=== PATIENT | female | born 1960 | race Caucasian/White ===

== ENCOUNTER → 2017-02-26 | Emergency (ER) | payer MEDICARE ==
[~2017-02-26] MED LIST: ASPIRIN CHILDRE81 MG PO; ASPRIN PO; BACTRIM 400 MG-1 TAB PO; BACTRIM DS 8001 TA1 PO; CALCIUM600 MG PO; CELLCEPT250 MG PO; CIPROFLOXACIN500 MG PO; CLONIDINE0.1 MG PO; COUMADIN5 M2 PO; CRESTOR20 MG PO; Coumadin7.5 MG PO; D3-55000 IU PO; FLAX SEED OIL1000 MG PO; FLORINEF0.1 MG PO; GLIPIZIDE10 MG PO; GLIPIZIDE5 MG PO; HUMULIN R100 U/ML IJ; HYDROCODONE BIT1 T11 PO; IRON325 M1 PO; LABETALOL200 MG PO; LANTUS SOLOS100 U/ML SC; LANTUS100 U/ML SC; MAGNESIUM OXID400 MG PO; METFORMIN500 MG PO; MULTIPLE VITAMI1 CAP PO; NEURONTIN100 MG PO; NORVASC10 MG PO; NOVOLOG; OXYCONTIN10 MG PO; PERCOCET 325 MG1 TA7 PO; PRILOSEC20 M1 PO; PRILOSEC40 MG PO; PROGRAF1 MG PO; PYRIDIUM200 MG PO; SLOW FE45 MG PO; VICODIN HP 6601 TA1 PO; Wellbutrin Sr100 MG PO; ZETIA10 MG PO
== END ==
LOC: ED 13:56
DX: Z53.21 Procedure and treatment not carried out due to patient leaving prior to being seen by health care provider (principal)

== ENCOUNTER 2018-05-29 05:28 | Inpatient (IN) | payer MEDICARE ==
[2018-05-29] VITALS (7 sets, daily range): BP systolic 142–191; BP diastolic 63–88
[~2018-05-29] VITALS: Ht 156.2 cm; Wt 85.0 kg
--- NOTE | ~2018-05-29 | EKG ---
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
--- NOTE | ~2018-05-29 | CON ---
[place], [place] REPORT OF CONSULTATION [id number] UNIT #: [id number] ROOM: 510 DOCTOR: BALDEV RODRIGUES MD BIRTHDATE: [birth year] DOS: 05/30/2018 PULMONARY CONSULTATION AND EVALUATION MANAGEMENT CONSULTATION REQUESTED BY: Hospitalist Services. REASON FOR CONSULTATION: For assessment of current abnormal respiratory symptoms. HISTORY OF PRESENT ILLNESS. This is a 57-year-old white female patient who has been admitted to the hospital on the date of 05/29/2018. The patient came into the hospital in the Emergency Room. The patient stated having symptoms of increased shortness of breath and increased cough. The symptoms ongoing for 2 weeks or more. The symptoms were noted rapidly progressive in the last couple of days and started more than 2 weeks ago. She does have symptoms of chest cough and congestion, using the albuterol sulfate excessively without any relief of symptoms. Tightness in the chest was noted. Denies any symptoms of chest pain. The patient denies symptoms of hemoptysis. The wheezing noted excessively. She has been admitted to the hospital for further medical management of acute exacerbation of chronic obstructive pulmonary disease at this time from yesterday started steroids, bronchodilators and antibiotics. REVIEW OF SYSTEMS: CONSTITUTIONAL: Fatigue and tiredness reported. Denies symptoms of fever or chills. EYES: Denies any burning, redness, or tenderness. EARS, NOSE, AND THROAT: Denies sore throat, hoarseness, otalgia, postnasal drip, epistaxis. CARDIOVASCULAR: Denies angina pain, edema or pain in the lower extremities or palpitations, or syncopal episodes. GENITOURINARY: No dysuria, suprapubic pain, hematuria. MUSCULOSKELETAL: No acute joint pain, redness, or tenderness. SKIN: Denies abnormal lesions or rashes. CENTRAL NERVOUS SYSTEM: No dizziness, headache, diplopia, syncopal episode, tingling sensation of the extremities. Remaining systems were reviewed, they were noted all negative. PAST MEDICAL HISTORY: The patient was known with history of: 1. COPD. 2. Coronary artery disease. 3. Carotid vascular disease. 4. History of renal failure with a kidney transplant. 5. Hypercoagulable status. 6. History of lupus. 7. Type 2 diabetes mellitus. 8. Peripheral arterial disease. PAST SURGICAL HISTORY: 1. Aortic and iliac femoral bypass. [place], [place] REPORT OF CONSULTATION NAME: JESUSITA HAYS UNIT #: [id number] ROOM: [facility] DOCTOR: VELIA POLLARD MDBALDEV BIRTHDATE: [birth year] 2. History of kidney transplant. SOCIAL HISTORY: The patient lives at home, noted tobacco use from a very young age. Continue to smoke actively 1 pack of cigarettes per day. She is , has 2 children, lives in her own home. FAMILY HISTORY: Both parents have been with complication related to the lung cancer. HOME MEDICATIONS: Listed as Norvasc, aspirin, Plavix, Zetia, Pepcid, Feosol, NovoLog, Tresiba, metformin, CellCept, Crestor, Protonix and Prograf. DRUG ALLERGIES: She was noted with no known drug allergies. PHYSICAL EXAMINATION: GENERAL: This is a 57-year-old female who has been noted currently awake and alert without acute distress. Height of 5 feet 1.5 inches, weight of 187 pounds, BMI 34.4. VITAL SIGNS: The patient normal temperature since admission, respiratory rate of 18-20, heart rate of 95-104, blood pressure 177/66-150/68. The pulse oxygen saturation on room air 98% saturation at rest. HEENT: Moderate obesity. Head was atraumatic. Eyes: No icterus. NECK: Supple. CARDIOVASCULAR: S1, S2 is audible. LUNGS: The patient with decreased breath sound noted bilaterally with diffuse expiratory wheezing was present. Basilar crackles were also present. ABDOMEN: Soft. Moderate obesity. Bowel sounds present without any tenderness. EXTREMITIES: The patient without acute edema, clubbing, cyanosis. MUSCULOSKELETAL: Without any acute deformities. SKIN: Visible skin no lesions or rashes. CENTRAL NERVOUS SYSTEM: Cranial nerves 2-12 intact. LABORATORY DATA: CBC yesterday, 05/29/2018, for this consultation reviewed. WBC count 11.9, hemoglobin 10.2, hematocrit 33.5, platelet count 143,000. PT and PTT for the patient were noted as normal. Lactic acid 1.4 yesterday. The troponin 3 sets in the last 24 hours normal. CMP of 05/30/2018, BUN 32, creatinine 1.61, glucose 287. CO2 was 15 for this patient was noted. PT/PTT for the patient repeated this morning again was normal. CMP that was done on 05/29/2018, BUN 26, creatinine 1.29, CO2 of 18. CBC of this morning, WBC count 22.2, hemoglobin 10, hematocrit 31.6, platelet count 442,000. Chest x-ray, 1 view noted with increased interstitial infiltration was suspected in the lower lung with small area of atelectasis. IMPRESSION: 1. The patient will be currently admitted to the hospital noted with acute exacerbation of chronic obstructive pulmonary disease with long-term nicotine dependence. 2. Rule out pneumonia, interstitial infiltration in the lower lungs. 3. Severe leukocytosis, most likely occurred as a result of steroid use. 4. Chronic immunosuppression with kidney transplant history. [place], [place] REPORT OF CONSULTATION NAME: JESUSITA HAYS UNIT #: [id number] ROOM: [facility] DOCTOR: JALEN RODRIGUES MDM BIRTHDATE: [birth year] 5. Acute kidney superimposed chronic injury secondary to intravascular volume depletion and acute tubular necrosis would be considered in the differential diagnosis. 6. The patient with moderate obesity. 7. Suspicion of obstructive sleep apnea disorder due to the patient's current body habitus as well. PLAN OF MANAGEMENT: The patient will be ordered CT scan of chest more clear assessment current abnormal chest x-ray, which were not noted very clear to define the actual interstitial abnormality. Kidney function of the patient will be monitored. Avoid excessive diuretic use. Obtain the Prograf level if not obtained. Also get a consultation of Nephrology Services for the assessment of normal kidney functions. DVT prophylaxis. The bronchodilator every 4 hours. Sputum for Gram stain and culture. Other workup if pneumonia present will be ordered after the CT scan of the assessment if the diagnosis of pneumonia could be confirmed. The patient will be ordered testing for legionella strep antigen and similar other labs. The antibiotic medication to be adjusted if the patient has normal kidney function as well. Other treatment change plan of management at this time as well. Nicotine replacement patches to help overcome the nicotine withdrawal as well. Minimum of sputum for Gram stain and culture will be ordered. Thank you for allowing me to participate in the care of this patient. BALDEV GUNN MD CM:CONSTR:REPORT OF CONSULTATION 1513 05/31/18 0237 interface
--- NOTE | ~2018-05-29 | PR ---
[place], [place] PROGRESS NOTE NAME: [facility]YS [id number] UNIT #: [id number] ROOM: 510 DOCTOR: VELIA POLLARD MD,BALDEV BIRTHDATE: [birth year] DOS: 05/31/2018 PULMONARY PROGRESS NOTE SUBJECTIVE: The patient has been noted comfortable, reduction of respiratory symptoms in the last 24 hours. Denies symptoms of fever or chills. Denies symptoms of coughing. She has been noted without any hematemesis, melena, or hematochezia. Denies symptoms of nausea, vomiting, diarrhea, or abdominal pain. Denies symptoms of hemoptysis. Denies any joint pain. Remaining review of systems was completed and that was noted all negative. PHYSICAL EXAMINATION: VITAL SIGNS: The patient has a normal temperature, respiratory rate 18, heart rate 99, blood pressure 154/76-190/82. Pulse oxygen saturation recorded on room air is 96% saturation. HEENT: Moderate obesity. NECK: Supple. CARDIOVASCULAR: S1, S2 is audible. LUNGS: The patient was noted with a generally decreased breath sounds, mild expiratory wheezing without any crackles. ABDOMEN: Soft, nontender. Bowel sounds present. EXTREMITIES: Noted without any acute edema. MUSCULOSKELETAL: Without any acute deformity. VISIBLE SKIN: No lesions or rashes. CENTRAL NERVOUS SYSTEM: Cranial nerves 2-12 intact. LABORATORY DATA: BMP this morning, BUN 45, creatinine 1.62, glucose 270. Sodium 135. The CO2 was still noted decreased to 14. WBC count for this patient's CBC elevated to 27,000, increased from 21,000; hemoglobin 9.8, hematocrit 31.2, platelet count 484,000. CT scan of the chest without contrast shows 9 cm ground-glass opacity in the right upper lobe, mild mediastinal lymphadenopathy. The patient with subcarinal lymph node enlargement of 1.3 cm as well. The interstitial lung disease was noted perihilar. The patient's lower lung with a small pleural fluids bilaterally, greater on the left than the right side. Thickening of the distal esophagus is also reported by the radiologist possibly related to the distal esophagus. IMPRESSION: 1. Chronic immune suppression with history of kidney transplant. 2. Further mild worsening of the acute kidney as well. 3. The patient with acute exacerbation of chronic obstructive pulmonary disease. 4. Interstitial lung disease, whether related to any medication or other etiology. Lymphadenopathy needs to be considered. A 9 mm nodule, ground-glass opacity in the right upper lung, certainly keep a close eye for the patient to exclude malignancy, further assessment. 5. Possible distal esophageal thickening. The leukocytosis worsened progressively. PLAN OF MANAGEMENT: The patient's steroids at this time will be discontinued [place], [place] PROGRESS NOTE NAME: JESUSITA HAYS UNIT #: [id number] ROOM: 510 DOCTOR: VELIA POLLARD MD,BALDEV BIRTHDATE: [birth year] and started on oral prednisone for the patient starting tomorrow at 20 mg with gradual taper. Continue current replacement patches. No change in antibiotics. Monitor respiratory status of the patient closely for this patient at this time. Repeat CBC and lab testing in the morning. The pleural fluid noted small, but not require any intervention, assessment of the current lymphadenopathy and ground-glass opacity, pulmonary nodule as an outpatient would be considered. Adjusting antibiotic for the patient based on her kidney function as well. The patient has been getting high dose of Levaquin 750 mg every 48 hours. Nephrology services followup as well. BALDEV GUNN MD CM:JASMIN [id number] BALDEV POLLARD MD 05/31/18 1950 interface
--- NOTE | ~2018-05-29 | PR ---
[place], [place] PROGRESS NOTE NAME: JESUSITA HAYS UNIT #: [id number] ROOM: 510 DOCTOR: BALDEV RODRIGUES MD BIRTHDATE: [birth year] DOS: 06/01/2018 PULMONARY PROGRESS NOTE SUBJECTIVE: The patient is noted comfortable at this time, resting on the bed. She has not been noted symptoms of chest pain, fever or chills. Hoping for home discharge. Denies symptoms of hemoptysis. OBJECTIVE: VITAL SIGNS: Normal temperature, respiratory rate 20, heart rate 88, blood pressure 160/80 this morning. Pulse oxygen saturation was recorded as 98% saturation at rest on room air. HEENT: Shows head was atraumatic, eyes nonicterus. NECK: Supple. CARDIOVASCULAR: S1 and S2 audible. LUNGS: Without any wheezes or crackles. ABDOMEN: Soft, nontender. EXTREMITIES: No acute edema. LABORATORY DATA: CBC: WBC count decreased to 18.8, hemoglobin 9.3. BMP: BUN 49, creatinine 1.49. IMPRESSION: 1. The patient with resolving acute interstitial pneumonia. 2. Improving leukocytosis as well because of the corticosteroids effect. The patient was started on prednisone tapering dose yesterday. 3. The patient with resolving acute pneumonia. 4. Improving acute kidney injury. 5. History of chronic kidney transplant. 6. Chronic immunosuppression. 7. Right upper lung ground-glass opacity, 9 mm, requires further assessment. PLAN OF MANAGEMENT: The patient could be discharged on tapering prednisone, antibiotics, and other medical management as previously. She was advised about followup office visit post-discharge as well. The nodule in the right upper lung requires a followup CT scan in 3 months to document resolution. If persistent, additional workup is to be done accordingly. [place], [place] PROGRESS NOTE NAME: JESUSITA HAYS UNIT #: [id number] ROOM: 510 DOCTOR: BALDEV RODRIGUES MD BIRTHDATE: [birth year] BALDEV GUNN MD CM:PNTRANS [id number] BALDEV POLLARD MD 06/01/18 1311 interface
--- NOTE | ~2018-05-29 | EKG ---
[place], [place] ELECTROCARDIOGRAM REPORT NAME: JESUSITA HAYS UNIT #: [id number] ROOM: 510 DOCTOR: CHU DRAFT REPORT BIRTHDATE: [birth year] [facility] Test Date: 2018-05-29 Test Time: 12:21:34 Pat Name: JESUSITA HAYS Department: Room: 510 Gender: F Development Educator: Queenie Smith : 1960 Requested By: JUAN MANUEL DOMINGUEZ Order Number: [id number] Reading MD: Dexter Santos MD Measurements Intervals [place] Rate: 94 P: CO: QRS: 40 QRSD: 85 T: -3 QT: 374 QTc: 468 Interpretive Statements Normal sinus rhythm Probable left atrial enlargement Borderline T abnormalities, inferior leads Minimal ST elevation, anterior leads Compared to earlier ECG this date Inferior ST-T changes are now present Electronically Signed On 05-29-2018 18:24:00 PST by Dexter Santos MD CM:EKGRPT:ELECTROCARDIOGRAM REPORT 1221 1824 JUAN MANUEL ZAIDI DRAFT REPORT JUAN MANUEL DOMINGUEZ DO
--- NOTE | ~2018-05-29 | EKG ---
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
[~2018-05-29 05:28] MED LIST changes: -METFORMIN500 MG PO; +Metformin Hydr500 MG PO
[2018-05-29] MEDS ORDERED: NORVASC10 MG PO (05:40)
[2018-05-29] MEDS ORDERED: PEPCID20 MG PO (05:41)
[2018-05-29] MEDS ORDERED: PROTONIX40 MG PO (05:41)
[2018-05-29] MEDS ORDERED: PLAVIX75 M1 PO (05:41)
[2018-05-29] MEDS ORDERED: TRESIBA FL100 UNIT/1 SQ ×2 (05:42→05:43)
[2018-05-29] MEDS ORDERED: NOVOLOG100 UNIT/1 SQ (05:43)
[2018-05-29 06:07] LABS: BASO # 0.1 10*3/uL (0.0-0.1); EOS # 0.5 10*3/uL (0.0-0.4); EOS % 3.9 % (1.0-4.0); HEMATOCRIT 33.5 % (37.0-47.0); HEMOGLOBIN 10.3 g/dl (12.0-16.0); LYMPH # 1.7 10*3/uL (1.3-4.4); LYMPH % 14.4 % (27.0-41.0); MEAN CELL VOLUME 89.8 fl (81.0-99.0); MEAN CORPUSCULAR HGB 27.6 pg (27.0-31.0); MEAN CORPUSCULAR HGB CONC 30.7 g/dl (33.0-37.0); MEAN PLATELET VOLUME 8.8 fl (9.6-12.3); MONO # 0.8 10*3/uL (0.1-1.0); MONO % 6.5 % (3.0-9.0); NEUT # 8.7 10*3/uL (2.3-7.9); NEUT % 73.6 % (47.0-73.0); PLATELET COUNT AUTOMATED 443 10*3/uL (130-400); RED BLOOD COUNT 3.73 10*6/uL (4.10-5.10); RED CELL DISTRI WIDTH 14.1 % (0-14.5); WHITE BLOOD COUNT 11.9 10*3/uL (4.8-10.8)
[2018-05-29 06:19] LABS: ACT PARTIAL THROMBO TIME 29.3 SECONDS (20.8-31.5); INTERNATIONAL NORM RATIO 0.9 (2.0-3.5)
[2018-05-29 06:20] LABS: ALKALINE PHOSPHATASE 79 U/L (45-117); BUN 26 mg/dl (7-24); CHLORIDE 115 mmol/L (98-107); CREATININE 1.29 mg/dL (0.55-1.02); POTASSIUM 4.8 mmol/L (3.5-5.1); SGOT/AST 11 IU/L (3-35); SGPT/ALT 11 U/L (12-78); SODIUM 141 mmol/L (136-145); TOTAL PROTEIN 7.1 gm/dL (6.4-8.2)
[2018-05-29 06:22] LABS: TROPONIN I < 0.015 ng/ml (<0.045)
[2018-05-29] MEDS ORDERED: FEROSUL325 MG PO (07:35)
[2018-05-30] VITALS: BP 149/67
[2018-05-30 07:04] LABS: HEMATOCRIT 31.6 % (37.0-47.0); MEAN CELL VOLUME 88.8 fl (81.0-99.0); MEAN CORPUSCULAR HGB 28.1 pg (27.0-31.0); MEAN CORPUSCULAR HGB CONC 31.6 g/dl (33.0-37.0); MEAN PLATELET VOLUME 8.9 fl (9.6-12.3); PLATELET COUNT AUTOMATED 442 10*3/uL (130-400); RED BLOOD COUNT 3.56 10*6/uL (4.10-5.10); RED CELL DISTRI WIDTH 13.9 % (0-14.5); WHITE BLOOD COUNT 22.2 10*3/uL (4.8-10.8)
[2018-05-30 07:12] LABS: ACT PARTIAL THROMBO TIME 27.9 SECONDS (20.8-31.5)
[2018-05-30 07:20] LABS: ALBUMIN 2.1 gm/dl (3.1-4.5); ALKALINE PHOSPHATASE 77 U/L (45-117); BUN 32 mg/dl (7-24); CHLORIDE 114 mmol/L (98-107); CHOLESTEROL 157 mg/dL (<200); CREATININE 1.61 mg/dL (0.55-1.02); SGOT/AST 9 IU/L (3-35); SGPT/ALT 11 U/L (12-78); SODIUM 138 mmol/L (136-145); TOTAL PROTEIN 6.9 gm/dL (6.4-8.2); TRIGLYCERIDES 136 mg/dl (<150); VLDL CHOLESTEROL 27 mg/dL (6-40)
[2018-05-30 07:21] LABS: FREE T4 0.88 ng/dl (0.76-1.46); HDL CHOLESTEROL 42 mg/dl (40-60); LDL CHOLESTEROL 88 mg/dL (9-159)
[2018-05-30 07:26] LABS: THYROID STIM HORMONE (HS) 0.999 uIU/ml (0.358-4.75)
[2018-05-30 08:00] VITALS: BP 118/68
[2018-05-30 08:01] LABS: PLATELET SUFFICIENCY HIGH (NORMAL); POLYCHROMASIA SLIGHT; TOTAL CELLS COUNTED 100 #CELLS
[2018-05-30 08:29] LABS: VITAMIN D, 25-HYDROXY 18.7 ng/mL (30-100)
[2018-05-30 12:00] VITALS: BP 150/68
[2018-05-30 16:00] VITALS: BP 155/60
[2018-05-30 20:00] VITALS: BP 158/68
[2018-05-31] VITALS (8 sets, daily range): BP systolic 147–190; BP diastolic 59–90
[2018-05-31 06:30] LABS: HEMATOCRIT 31.2 % (37.0-47.0); HEMOGLOBIN 9.8 g/dl (12.0-16.0); MEAN CELL VOLUME 90.2 fl (81.0-99.0); MEAN CORPUSCULAR HGB 28.3 pg (27.0-31.0); MEAN CORPUSCULAR HGB CONC 31.4 g/dl (33.0-37.0); MEAN PLATELET VOLUME 9.1 fl (9.6-12.3); PLATELET COUNT AUTOMATED 484 10*3/uL (130-400); RED BLOOD COUNT 3.46 10*6/uL (4.10-5.10); RED CELL DISTRI WIDTH 14.5 % (0-14.5); WHITE BLOOD COUNT 27.1 10*3/uL (4.8-10.8)
[2018-05-31 06:53] LABS: POLYCHROMASIA SLIGHT; TOTAL CELLS COUNTED 100 #CELLS
[2018-05-31 06:54] LABS: PLATELET SUFFICIENCY HIGH (NORMAL); TOXIC GRANULATION SLIGHT
[2018-05-31 06:58] LABS: CREATININE 1.62 mg/dL (0.55-1.02); POTASSIUM 5.1 mmol/L (3.5-5.1)
[2018-06-01] VITALS: BP 130/51
[2018-06-01 06:57] LABS: BASO % 0.1 % (0.0-1.0); EOS % 0.1 % (1.0-4.0); HEMOGLOBIN 9.3 g/dl (12.0-16.0); LYMPH # 1.9 10*3/uL (1.3-4.4); LYMPH % 10.2 % (27.0-41.0); MEAN CELL VOLUME 88.8 fl (81.0-99.0); MEAN CORPUSCULAR HGB 27.5 pg (27.0-31.0); MONO # 1.4 10*3/uL (0.1-1.0); MONO % 7.4 % (3.0-9.0); NEUT # 15.3 10*3/uL (2.3-7.9); NEUT % 81.1 % (47.0-73.0); PLATELET COUNT AUTOMATED 469 10*3/uL (130-400); RED BLOOD COUNT 3.38 10*6/uL (4.10-5.10); RED CELL DISTRI WIDTH 14.4 % (0-14.5); WHITE BLOOD COUNT 18.8 10*3/uL (4.8-10.8)
[2018-06-01 08:01] VITALS: BP 160/80
[2018-06-01 08:16] LABS: ALBUMIN 2.1 gm/dl (3.1-4.5); ALKALINE PHOSPHATASE 66 U/L (45-117); BUN 49 mg/dl (7-24); CHLORIDE 115 mmol/L (98-107); CREATININE 1.56 mg/dL (0.55-1.02); POTASSIUM 4.5 mmol/L (3.5-5.1); SGOT/AST 10 IU/L (3-35); SGPT/ALT 18 U/L (12-78); SODIUM 141 mmol/L (136-145); TOTAL PROTEIN 6.2 gm/dL (6.4-8.2)
[2018-06-01] MEDS ORDERED: PREDNISONE10 MG PO (10:16)
[2018-06-01] MEDS ORDERED: TOPROL XL50 M1 PO (10:16)
[2018-06-01] MEDS ORDERED: B12,B-12,B 12500 MC1 PO (10:16)
[2018-06-01] MEDS ORDERED: VITAMIN D32000 UNI1 PO (10:16)
[2018-06-01] MEDS ORDERED: LEVAQUIN750 M1 PO (10:16)
== END 2018-06-01 11:20 | disposition home or self-care (01) | DRG 871 ==
LOC: ED 05:28 → EDHOLD 06:37 → 5E 06:37
PROVIDERS: Internal Medicine; Internal Medicine Critical Care Medicine; Student in an Organized Health Care Education/Training Program
DX: A41.9 Sepsis, unspecified organism (principal); E43 Unspecified severe protein-calorie malnutrition; J18.1 Lobar pneumonia, unspecified organism; D84.9 Immunodeficiency, unspecified; D68.59 Other primary thrombophilia; N17.9 Acute kidney failure, unspecified; J98.11 Atelectasis; Z94.0 Kidney transplant status; J44.1 Chronic obstructive pulmonary disease with (acute) exacerbation; J44.0 Chronic obstructive pulmonary disease with (acute) lower respiratory infection; N18.3 Chronic kidney disease, stage 3 (moderate); M32.9 Systemic lupus erythematosus, unspecified; E66.09 Other obesity due to excess calories; E83.41 Hypermagnesemia; E87.8 Other disorders of electrolyte and fluid balance, not elsewhere classified; D47.3 Essential (hemorrhagic) thrombocythemia; I65.21 Occlusion and stenosis of right carotid artery; I25.10 Atherosclerotic heart disease of native coronary artery without angina pectoris; I27.21 Secondary pulmonary arterial hypertension; R59.0 Localized enlarged lymph nodes; F17.210 Nicotine dependence, cigarettes, uncomplicated; I12.9 Hypertensive chronic kidney disease with stage 1 through stage 4 chronic kidney disease, or unspecified chronic kidney disease; E11.51 Type 2 diabetes mellitus with diabetic peripheral angiopathy without gangrene; E11.22 Type 2 diabetes mellitus with diabetic chronic kidney disease; R91.1 Solitary pulmonary nodule; T38.0X5A Adverse effect of glucocorticoids and synthetic analogues, initial encounter; Z71.6 Tobacco abuse counseling; Z68.34 Body mass index [BMI] 34.0-34.9, adult; Z87.440 Personal history of urinary (tract) infections; Z80.1 Family history of malignant neoplasm of trachea, bronchus and lung; Z79.899 Other long term (current) drug therapy; Z79.82 Long term (current) use of aspirin; Z79.02 Long term (current) use of antithrombotics/antiplatelets; Y92.89 Other specified places as the place of occurrence of the external cause; Z79.4 Long term (current) use of insulin

== ENCOUNTER → 2020-04-07 | Outpatient (CLI) | payer MEDICARE ==
[~2020-04-07] MED LIST changes: +B12,B-12,B 12500 MC1 PO; +COREG25 MG PO; +FEROSUL325 MG PO; +LASIX80 MG PO; +LEVAQUIN750 M1 PO; +LEXAPRO10 MG PO; +MAGOX 400400 MG PO; +NEPHRO-VITE TA0.8 MG PO; +NOVOLOG100 UNIT/1 SQ; +PEPCID20 MG PO; +PLAVIX75 M1 PO; +PREDNISONE10 MG PO; +PROTONIX40 MG PO; +RANOLAZINE ER500 MG PO; +TOPROL XL50 M1 PO; +TRESIBA FL100 UNIT/1 SQ; +VITAMIN D32000 UNI1 PO
== END | disposition home or self-care (01) ==
LOC: CARD 10:15
PROVIDERS: ATTEND Internal Medicine Cardiovascular Disease
DX: I08.3 Combined rheumatic disorders of mitral, aortic and tricuspid valves (principal); R94.31 Abnormal electrocardiogram [ECG] [EKG]

== ENCOUNTER 2020-06-12 14:21 | Inpatient (IN) | payer MEDICARE, MEDICAID ==
[2020-06-12] VITALS (13 sets, daily range): BP systolic 116–172; BP diastolic 28–102
[~2020-06-12] VITALS: Ht 154.9 cm; Wt 56.3 kg
[~2020-06-12 14:21] MED LIST changes: -COREG25 MG PO; -LEXAPRO10 MG PO; -NEPHRO-VITE TA0.8 MG PO; -RANOLAZINE ER500 MG PO
--- NOTE | 2020-06-12 14:48 | NUR ---
PATIENT C/O SUBSTERNAL CHEST PAIN. RATING PAIN A 10/10. MEDICATED PER ORDERS. IVP BY RN. WILL CONTINUE TO MONITOR PT. CALL LIGHT IN REACH.
[2020-06-12 14:54] LABS: MEAN CELL VOLUME 95.8 fl (81.0-99.0); MEAN CORPUSCULAR HGB 28.9 pg (27.0-31.0); MEAN CORPUSCULAR HGB CONC 30.2 g/dl (33.0-37.0); MEAN PLATELET VOLUME 8.9 fl (9.6-12.3); PLATELET COUNT AUTOMATED 384 10*3/uL (130-400); RED CELL DISTRI WIDTH 15.1 % (0-14.5); WHITE BLOOD COUNT 10.5 10*3/uL (4.8-10.8)
[2020-06-12 15:00] LABS: HEMATOCRIT 18.2 % (37.0-47.0)
[2020-06-12 15:06] LABS: ACT PARTIAL THROMBO TIME 25.2 SECONDS (20.0-32.1)
--- NOTE | 2020-06-12 15:10 | NUR ---
PATIENT STATES THAT HE PAIN HAS DECREASED TO A 5/10. PATIENT CONTINUES TO REST. CALL LIGHT IN REACH. WILL CONTINUE TO MONITOR PT.
[2020-06-12 15:12] LABS: ALBUMIN 2.6 gm/dl (3.1-4.5); ALKALINE PHOSPHATASE 78 U/L (45-117); BUN 10 mg/dl (7-24); CHLORIDE 99 mmol/L (98-107); CREATININE 0.96 mg/dL (0.55-1.02); POTASSIUM 3.6 mmol/L (3.5-5.1); SGOT/AST 15 IU/L (3-35); SGPT/ALT 9 U/L (12-78); SODIUM 138 mmol/L (136-145); TOTAL PROTEIN 7.3 gm/dL (6.4-8.2)
[2020-06-12 15:19] LABS: BASOPHILS 1 % (0-1); PLATELET SUFFICIENCY NORMAL (NORMAL); STOMATOCYTE FEW; TOTAL CELLS COUNTED 100 #CELLS
[2020-06-12 15:21] LABS: TROPONIN I 0.066 ng/ml (<0.045)
--- NOTE | 2020-06-12 15:26 | NUR ---
TRPOPNIN 0.066
[2020-06-12] MEDS ORDERED: NEPHRO-VITE TA0.8 MG PO (16:09)
[2020-06-12] MEDS ORDERED: LEXAPRO10 MG PO (16:09)
--- NOTE | 2020-06-12 16:17 | NUR ---
PT RECIEVEING PRBC PT ASYMPTOMATIC RECIEVING BLOOD AT 120 / HR
--- NOTE | 2020-06-12 16:40 | NUR ---
A 59, admitted to ICCU, under the services of GUILLERMO Moody DO with a diagnosis of ANEMIA & NSTEMI. Chief complaint is CHEST PAIN. Patient arrived via stretcher from ER. Monitor applied. Initial assessment completed. Vital signs taken and recorded. GUILLERMO MOODY DO notified of admission to the unit. Orders received. See assessment for past medical history, medications and allergies. Patient and/or family oriented to unit. [facility] visitation policy reviewed. BLOOD INFUSING UPON ARRIVAL TO ICU AVE CRUZ
[2020-06-12] MEDS ORDERED: COREG25 MG PO (16:51)
[2020-06-12] MEDS ORDERED: RANOLAZINE ER500 MG PO (16:52)
[2020-06-12] MEDS ORDERED: PROTONIX40 MG PO (16:53)
--- NOTE | 2020-06-12 17:01 | NUR ---
DR. OLIVAREZ, DR. MARKS'S ANSWERING SERVICE NOTIFIED OF CONSULT. DR. FRAZIER ALSO MADE AWARE OF CONSULT
--- NOTE | 2020-06-12 17:21 | NUR ---
DR FRAZIER NOTIFIED OF CONSULT
--- NOTE | 2020-06-12 17:30 | NUR ---
DR CORRALES AND KENDELL SERVICE NOTIFIED OF CONSULT
--- NOTE | 2020-06-12 18:17 | NUR ---
MEDICATED WITH MORPHINE 2MG IV FOR COMPLAINTS OF PAIN UNDER RIGHT BREAST. RATES PAIN A 8 ON A PAIN SCALE OF 1-10
--- NOTE | 2020-06-12 18:23 | NUR ---
CBC CANCELLED FOR 8PM, AND WILL BE RETIMED FOR WHEN BLOOD IS DONE
--- NOTE | 2020-06-12 18:30 | NUR ---
FIRST RBC COMPLETED
--- NOTE | 2020-06-12 20:00 | NUR ---
PT WITH PERITONEAL CATH W/ DRY AND INTACT DRESSING, HAS OLD NON FUNCTIONAL AV FISTULA TO L UPPER ARM, NO BRUIT OR THRILL
[2020-06-12 20:34] LABS: HEMATOCRIT 21.2 % (37.0-47.0)
[2020-06-13] VITALS (10 sets, daily range): BP systolic 103–130; BP diastolic 39–54
[2020-06-13 02:01] LABS: BASO # 0.1 10*3/uL (0.0-0.1); BASO % 1.2 % (0.0-1.0); EOS # 0.4 10*3/uL (0.0-0.4); EOS % 5.9 % (1.0-4.0); HEMATOCRIT 24.2 % (37.0-47.0); LYMPH # 0.8 10*3/uL (1.3-4.4); LYMPH % 12.9 % (27.0-41.0); MEAN CELL VOLUME 93.4 fl (81.0-99.0); MEAN CORPUSCULAR HGB 30.1 pg (27.0-31.0); MEAN CORPUSCULAR HGB CONC 32.2 g/dl (33.0-37.0); MEAN PLATELET VOLUME 8.7 fl (9.6-12.3); MONO # 0.7 10*3/uL (0.1-1.0); MONO % 11.5 % (3.0-9.0); NEUT # 4.4 10*3/uL (2.3-7.9); NEUT % 68.2 % (47.0-73.0); RED BLOOD COUNT 2.59 10*6/uL (4.10-5.10); RED CELL DISTRI WIDTH 15.1 % (0-14.5); WHITE BLOOD COUNT 6.4 10*3/uL (4.8-10.8)
[2020-06-13 02:02] LABS: PLATELET COUNT AUTOMATED 246 10*3/uL (130-400)
--- NOTE | 2020-06-13 03:31 | NUR ---
ATTEMP TO WEAN EPI DOWN TP .05MICS/KG/MIN, PT/S BP DROPS TP 80'S, BACK UP TO .075, PT WITH SINUS TACHY AND BP IN 200'S SBP, 100 DPP, DIPROVAN DRIP INCREASED TO 25 MICS/KG/MIN
--- NOTE | 2020-06-13 06:18 | NUR ---
LE: LAST PM AT 0920 PT HAD 1 VICODIN FOR C/O R PAIN UNDER BREAST, MEDICATION EFFECTIVE, PT SLEPT THROUGH THE NIGHT
--- NOTE | 2020-06-13 10:21 | NUR ---
[facility],
[2020-06-13 10:49] LABS: BASO # 0.1 10*3/uL (0.0-0.1); EOS # 0.3 10*3/uL (0.0-0.4); EOS % 4.8 % (1.0-4.0); HEMATOCRIT 28.2 % (37.0-47.0); LYMPH # 0.6 10*3/uL (1.3-4.4); LYMPH % 8.5 % (27.0-41.0); MEAN CELL VOLUME 92.5 fl (81.0-99.0); MEAN CORPUSCULAR HGB 29.8 pg (27.0-31.0); MEAN CORPUSCULAR HGB CONC 32.3 g/dl (33.0-37.0); MEAN PLATELET VOLUME 8.8 fl (9.6-12.3); MONO # 0.6 10*3/uL (0.1-1.0); MONO % 8.7 % (3.0-9.0); NEUT # 5.1 10*3/uL (2.3-7.9); NEUT % 76.7 % (47.0-73.0); PLATELET COUNT AUTOMATED 264 10*3/uL (130-400); RED BLOOD COUNT 3.05 10*6/uL (4.10-5.10); RED CELL DISTRI WIDTH 16.2 % (0-14.5); WHITE BLOOD COUNT 6.7 10*3/uL (4.8-10.8)
--- NOTE | 2020-06-13 11:06 | NUR ---
Pt. was transferred to via w/c with belongings . Report pending RN assignment. Bed glu done prior to departure.
[2020-06-13 11:10] LABS: ACT PARTIAL THROMBO TIME 26.3 SECONDS (20.0-32.1)
[2020-06-13 11:27] LABS: ALBUMIN 2.3 gm/dl (3.1-4.5); CREATININE 2.24 mg/dL (0.55-1.02); POTASSIUM 3.7 mmol/L (3.5-5.1); TOTAL PROTEIN 6.4 gm/dL (6.4-8.2)
[2020-06-13 11:29] LABS: FREE T4 1.45 ng/dl (0.76-1.46)
--- NOTE | 2020-06-13 11:30 | NUR ---
PHYSICAL THERAPY PT EVAL ATTEMPTED TODAY BUT PATIENT WAS SLEEPING ON FIRST ATTEMPT AND REQUESTING TO RETURN TOMORROW ON SECOND ATTEMPT. THANK YOU FOR REFERRAL JULIETH PACHECO PT
[2020-06-13 11:34] LABS: THYROID STIM HORMONE (HS) 1.04 uIU/ml (0.358-4.75)
--- NOTE | 2020-06-13 13:07 | NUR ---
PT REQUESTED AND GIVEN NORCO FOR C/O ABD PAIN . PT RATES PAIN 5/10 WILL MONITOR
[2020-06-13 13:16] LABS: VITAMIN D, 25-HYDROXY 31.3 ng/mL (30-100)
--- NOTE | 2020-06-13 13:50 | NUR ---
PT STATES THAT [facility] HELPED WILL MONITOR
--- NOTE | 2020-06-13 21:06 | NUR ---
HERE TO SEE PT.
[2020-06-14] VITALS: BP 114/52
[2020-06-14 06:30] LABS: BASO # 0.1 10*3/uL (0.0-0.1); BASO % 1.1 % (0.0-1.0); EOS # 0.3 10*3/uL (0.0-0.4); HEMATOCRIT 28.4 % (37.0-47.0); LYMPH # 0.9 10*3/uL (1.3-4.4); LYMPH % 15.1 % (27.0-41.0); MEAN CELL VOLUME 93.4 fl (81.0-99.0); MEAN CORPUSCULAR HGB 29.9 pg (27.0-31.0); MEAN PLATELET VOLUME 8.9 fl (9.6-12.3); MONO # 0.5 10*3/uL (0.1-1.0); MONO % 8.4 % (3.0-9.0); NEUT # 4.3 10*3/uL (2.3-7.9); NEUT % 69.9 % (47.0-73.0); PLATELET COUNT AUTOMATED 253 10*3/uL (130-400); RED BLOOD COUNT 3.04 10*6/uL (4.10-5.10); RED CELL DISTRI WIDTH 15.9 % (0-14.5); WHITE BLOOD COUNT 6.2 10*3/uL (4.8-10.8)
[2020-06-14 06:49] LABS: ALBUMIN 2.3 gm/dl (3.1-4.5); POTASSIUM 3.9 mmol/L (3.5-5.1)
[2020-06-14 06:52] LABS: CREATININE 3.24 mg/dL (0.55-1.02); TOTAL PROTEIN 6.4 gm/dL (6.4-8.2)
[2020-06-14 08:00] VITALS: BP 116/48
--- NOTE | 2020-06-14 08:28 | NUR ---
OT NOTE Occupational therapy order and nursing screen received. Will follow up with the patient for completion of an OT evaluation. Thank you. Mary Partida, OTR/L
--- NOTE | 2020-06-14 08:36 | NUR ---
PHYSICAL THERAPY Nursing screen recceived and chart reviewed. PT evaluation received. Will follow to complete PT evaluation. Thank you. Tahmina Ramos,PT,DPT
--- NOTE | 2020-06-14 09:00 | NUR ---
Senior Construction Estimator in to talk to patient. Patient states lives at home with . There are no steps in the home. Physician: mulu chaney Pharmacy: Home health services: none Patient's level of ADLs: INDEPENDENT Patient has working utilities: all working DME: none Follow-up physician's appointment after d/c: will be made by hospitalist nurse director upon discharge Does patient want to access PORTAL?: no Discharge plan discussed with patient, she lives at home with , states she gets around fine and will be returning home when discharged, discussed VNA and she declines any home needs, case management will follow. TEODORO MCCOY
[2020-06-14 12:00] VITALS: BP 123/47
[2020-06-14 14:00] VITALS: BP 158/52
--- NOTE | 2020-06-14 14:06 | NUR ---
INTO PATIENTS ROOM TO DISCUSS DISCHARGE. PATIENT DIAPHORETIC AND NAUSEA. BLOOD SUGAR CHECKED. BLOOD SUGAR 57. DEXTROSE GIVEN PER ORDERS. PATIENT FEELING MUCH BETTER. NOTIFIED BE MAYORGA. PATIENT STILL OKAY TO BE DISCHARGED. VITAL SIGNS CHECKED AND STABLE.
--- NOTE | 2020-06-14 14:37 | NUR ---
RECHECKED PATIENTS BLOOD SUGAR. BLOOD SUGAR NOW 197. PATIENT FEELING MUCH BETTER AND IS READY TO GO HOME.
--- NOTE | 2020-06-14 14:45 | NUR ---
PATIENT NOT WANTING PHOTO TAKEN OF HER BUTTOCKS FOR DISCHARGE PHOTOS. WILL CONTINUE TO MONITOR.
--- NOTE | 2020-06-14 15:04 | NUR ---
Discharge instructions reviewed with patient/family. Patient receptive and verbalizes understanding. Follow-up care arranged. Written instructions given to patient/family. PATIENT WHEELED OUT BY PA TO AT FRONT ENTRANCE. ALL BELONGINGS WITH PATIENT. CRISTIAN TOVAR
== END 2020-06-14 15:04 | disposition home or self-care (01) | DRG 280 ==
LOC: ED 14:21 → EDHOLD 15:30 → 5E 15:30 → ICCU 15:58 → 4E 06-13 11:04 → 5E 06-13 11:35
PROVIDERS: Emergency Medicine; Hospitalist; Internal Medicine Gastroenterology; ADMIT Internal Medicine; ATTEND Internal Medicine
PROC: 30233N1 Transfusion of Nonautologous Red Blood Cells into Peripheral Vein, Percutaneous Approach (ICD-10-PCS; principal; 2020-06-12)
DX: I21.A1 Myocardial infarction type 2 (principal); E43 Unspecified severe protein-calorie malnutrition; N18.6 End stage renal disease; J80 Acute respiratory distress syndrome; E87.3 Alkalosis; J98.11 Atelectasis; I12.0 Hypertensive chronic kidney disease with stage 5 chronic kidney disease or end stage renal disease; D64.9 Anemia, unspecified; I25.110 Atherosclerotic heart disease of native coronary artery with unstable angina pectoris; M32.9 Systemic lupus erythematosus, unspecified; E11.65 Type 2 diabetes mellitus with hyperglycemia; J44.9 Chronic obstructive pulmonary disease, unspecified; I08.3 Combined rheumatic disorders of mitral, aortic and tricuspid valves; E11.22 Type 2 diabetes mellitus with diabetic chronic kidney disease; Z79.4 Long term (current) use of insulin; Z99.2 Dependence on renal dialysis; Z68.23 Body mass index [BMI] 23.0-23.9, adult; Z95.5 Presence of coronary angioplasty implant and graft; Z80.1 Family history of malignant neoplasm of trachea, bronchus and lung; Z79.82 Long term (current) use of aspirin; Z79.899 Other long term (current) drug therapy; I25.2 Old myocardial infarction; Z82.49 Family history of ischemic heart disease and other diseases of the circulatory system

== ENCOUNTER 2020-10-20 14:29 | Inpatient (IN) | payer MEDICARE, MEDICAID ==
[2020-10-20] VITALS (8 sets, daily range): BP systolic 91–154; BP diastolic 42–60
[~2020-10-20] VITALS: Ht 154.9 cm; Wt 55.3 kg
[~2020-10-20 14:29] MED LIST changes: +COREG25 MG PO; +LEXAPRO10 MG PO; +NEPHRO-VITE TA0.8 MG PO; +RANOLAZINE ER500 MG PO
[2020-10-20 15:19] LABS: BASO # 0.1 10*3/uL (0.0-0.1); BASO % 1.1 % (0.0-1.0); EOS # 0.4 10*3/uL (0.0-0.4); EOS % 4.5 % (1.0-4.0); HEMATOCRIT 38.4 % (37.0-47.0); LYMPH # 0.9 10*3/uL (1.3-4.4); LYMPH % 10.6 % (27.0-41.0); MEAN CELL VOLUME 93.4 fl (81.0-99.0); MEAN CORPUSCULAR HGB 28.2 pg (27.0-31.0); MEAN CORPUSCULAR HGB CONC 30.2 g/dl (33.0-37.0); MEAN PLATELET VOLUME 8.6 fl (9.6-12.3); MONO # 0.7 10*3/uL (0.1-1.0); MONO % 7.3 % (3.0-9.0); NEUT # 6.7 10*3/uL (2.3-7.9); NEUT % 76.2 % (47.0-73.0); PLATELET COUNT AUTOMATED 374 10*3/uL (130-400); RED BLOOD COUNT 4.11 10*6/uL (4.10-5.10); RED CELL DISTRI WIDTH 16.1 % (0-14.5); WHITE BLOOD COUNT 8.9 10*3/uL (4.8-10.8)
[2020-10-20 15:31] LABS: ACT PARTIAL THROMBO TIME 30.8 SECONDS (20.0-32.1); INTERNATIONAL NORM RATIO 1.1 (2.0-3.5)
[2020-10-20 15:35] LABS: ALBUMIN 2.9 gm/dl (3.1-4.5); ALKALINE PHOSPHATASE 104 U/L (45-117); BUN 34 mg/dl (7-24); CHLORIDE 101 mmol/L (98-107); CREATININE 3.14 mg/dL (0.55-1.02); POTASSIUM 4.1 mmol/L (3.5-5.1); SGOT/AST 10 IU/L (3-35); SGPT/ALT 10 U/L (12-78); SODIUM 136 mmol/L (136-145); TOTAL PROTEIN 8.6 gm/dL (6.4-8.2)
[2020-10-20 15:43] LABS: TROPONIN I < 0.015 ng/ml (<0.045)
[2020-10-20] MEDS ORDERED: GABAPENTIN100 M2 PO (23:58)
[2020-10-20] MEDS ORDERED: ASPIRIN ADULT L81 M1 PO (23:59)
[2020-10-20] MEDS ORDERED: PLAVIX75 M1 PO (23:59)
[2020-10-21 06:31] LABS: BASO # 0.1 10*3/uL (0.0-0.1); BASO % 1.5 % (0.0-1.0); EOS # 0.6 10*3/uL (0.0-0.4); EOS % 7.3 % (1.0-4.0); HEMATOCRIT 34.5 % (37.0-47.0); LYMPH # 0.9 10*3/uL (1.3-4.4); LYMPH % 11.6 % (27.0-41.0); MEAN CELL VOLUME 92.5 fl (81.0-99.0); MEAN CORPUSCULAR HGB 28.2 pg (27.0-31.0); MEAN CORPUSCULAR HGB CONC 30.4 g/dl (33.0-37.0); MEAN PLATELET VOLUME 8.9 fl (9.6-12.3); MONO # 0.7 10*3/uL (0.1-1.0); MONO % 8.3 % (3.0-9.0); NEUT # 5.6 10*3/uL (2.3-7.9); PLATELET COUNT AUTOMATED 315 10*3/uL (130-400); RED BLOOD COUNT 3.73 10*6/uL (4.10-5.10); RED CELL DISTRI WIDTH 16.1 % (0-14.5); WHITE BLOOD COUNT 7.9 10*3/uL (4.8-10.8)
[2020-10-21 06:48] LABS: ACT PARTIAL THROMBO TIME 33.1 SECONDS (20.0-32.1); INTERNATIONAL NORM RATIO 1.1 (2.0-3.5)
[2020-10-21 07:03] LABS: ALBUMIN 2.4 gm/dl (3.1-4.5); CREATININE 3.27 mg/dL (0.55-1.02); POTASSIUM 3.8 mmol/L (3.5-5.1); TOTAL PROTEIN 7.8 gm/dL (6.4-8.2)
[2020-10-21 12:00] VITALS: BP 152/51
[2020-10-21 16:00] VITALS: BP 158/62
[2020-10-21 20:00] VITALS: BP 110/42
[2020-10-22] VITALS: BP 127/45
[2020-10-22 06:45] LABS: BASO # 0.1 10*3/uL (0.0-0.1); BASO % 1.7 % (0.0-1.0); EOS # 0.6 10*3/uL (0.0-0.4); EOS % 8.7 % (1.0-4.0); HEMATOCRIT 36.2 % (37.0-47.0); LYMPH # 0.8 10*3/uL (1.3-4.4); LYMPH % 12.6 % (27.0-41.0); MEAN CELL VOLUME 92.1 fl (81.0-99.0); MEAN CORPUSCULAR HGB 27.7 pg (27.0-31.0); MEAN CORPUSCULAR HGB CONC 30.1 g/dl (33.0-37.0); MEAN PLATELET VOLUME 8.7 fl (9.6-12.3); MONO # 0.7 10*3/uL (0.1-1.0); MONO % 10.7 % (3.0-9.0); NEUT # 4.3 10*3/uL (2.3-7.9); PLATELET COUNT AUTOMATED 329 10*3/uL (130-400); RED BLOOD COUNT 3.93 10*6/uL (4.10-5.10); RED CELL DISTRI WIDTH 15.7 % (0-14.5); WHITE BLOOD COUNT 6.5 10*3/uL (4.8-10.8)
[2020-10-22 07:07] LABS: CREATININE 3.19 mg/dL (0.55-1.02)
[2020-10-22 08:00] VITALS: BP 119/54
[2020-10-22 12:00] VITALS: BP 124/56
[2020-10-22] MEDS ORDERED: METOPROLOL TART50 M1 PO (13:04)
[2020-10-22] MEDS ORDERED: XARE15TA PO (13:04)
[2020-10-22] MEDS ORDERED: ATORVASTATIN CA40 M1 PO (13:04)
[2020-10-22] MEDS ORDERED: ELIQUIS5 M1 PO (15:20)
[2020-10-29] MEDS ORDERED: METOPROLOL TART50 M1 PO (14:19)
== END 2020-10-22 14:00 | disposition home or self-care (01) | DRG 308 ==
LOC: ED 14:29 → 5E 16:52 → EDHOLD 16:52 → 5E 21:43
PROVIDERS: Emergency Medicine; Internal Medicine; Social Worker Clinical; ADMIT Internal Medicine; ATTEND Internal Medicine
PROC: 5A1D70Z Performance of Urinary Filtration, Intermittent, Less than 6 Hours Per Day (ICD-10-PCS; principal; 2020-10-21)
DX: I48.91 Unspecified atrial fibrillation (principal); N18.6 End stage renal disease; I24.8 Other forms of acute ischemic heart disease; E87.2 Acidosis; D68.51 Activated protein C resistance; I13.2 Hypertensive heart and chronic kidney disease with heart failure and with stage 5 chronic kidney disease, or end stage renal disease; E44.1 Mild protein-calorie malnutrition; D68.59 Other primary thrombophilia; Z94.0 Kidney transplant status; E11.65 Type 2 diabetes mellitus with hyperglycemia; D64.9 Anemia, unspecified; E83.41 Hypermagnesemia; R79.82 Elevated C-reactive protein (CRP); R00.1 Bradycardia, unspecified; J44.9 Chronic obstructive pulmonary disease, unspecified; M32.9 Systemic lupus erythematosus, unspecified; I25.10 Atherosclerotic heart disease of native coronary artery without angina pectoris; E11.22 Type 2 diabetes mellitus with diabetic chronic kidney disease; E11.51 Type 2 diabetes mellitus with diabetic peripheral angiopathy without gangrene; I08.3 Combined rheumatic disorders of mitral, aortic and tricuspid valves; I27.20 Pulmonary hypertension, unspecified; R79.89 Other specified abnormal findings of blood chemistry; I50.9 Heart failure, unspecified; Z79.4 Long term (current) use of insulin; Z99.2 Dependence on renal dialysis; Z90.49 Acquired absence of other specified parts of digestive tract; Z87.891 Personal history of nicotine dependence; Z80.1 Family history of malignant neoplasm of trachea, bronchus and lung; I25.2 Old myocardial infarction; Z95.5 Presence of coronary angioplasty implant and graft; Z79.82 Long term (current) use of aspirin; Z79.899 Other long term (current) drug therapy; Z79.02 Long term (current) use of antithrombotics/antiplatelets; Z86.718 Personal history of other venous thrombosis and embolism; Z68.23 Body mass index [BMI] 23.0-23.9, adult

== ENCOUNTER 2020-11-04 16:12 | Inpatient (IN) | payer MEDICARE ==
[2020-11-04] VITALS (8 sets, daily range): BP systolic 88–117; BP diastolic 30–84
[~2020-11-04] VITALS: Ht 154.9 cm; Wt 56.4 kg
[~2020-11-04 16:12] MED LIST changes: +ASPIRIN ADULT L81 M1 PO; +ATORVASTATIN CA40 M1 PO; +ELIQUIS5 M1 PO; +GABAPENTIN100 M2 PO; +METOPROLOL TART50 M1 PO; +XARE15TA PO
[2020-11-04 16:57] LABS: HEMATOCRIT 38.1 % (37.0-47.0); MEAN CELL VOLUME 93.6 fl (81.0-99.0); MEAN CORPUSCULAR HGB 28.5 pg (27.0-31.0); MEAN CORPUSCULAR HGB CONC 30.4 g/dl (33.0-37.0); MEAN PLATELET VOLUME 8.8 fl (9.6-12.3); PLATELET COUNT AUTOMATED 364 10*3/uL (130-400); RED BLOOD COUNT 4.07 10*6/uL (4.10-5.10); RED CELL DISTRI WIDTH 17.8 % (0-14.5); WHITE BLOOD COUNT 21.3 10*3/uL (4.8-10.8)
[2020-11-04 17:12] LABS: ALBUMIN 2.7 gm/dl (3.1-4.5); ALKALINE PHOSPHATASE 107 U/L (45-117); BUN 14 mg/dl (7-24); CHLORIDE 99 mmol/L (98-107); CREATININE 2.16 mg/dL (0.55-1.02); POTASSIUM 4.2 mmol/L (3.5-5.1); SGOT/AST 12 IU/L (3-35); SGPT/ALT 9 U/L (12-78); SODIUM 134 mmol/L (136-145)
[2020-11-04 17:14] LABS: PLATELET SUFFICIENCY NORMAL (NORMAL); TOTAL CELLS COUNTED 100 #CELLS; TROPONIN I < 0.015 ng/ml (<0.045)
[2020-11-04 17:17] LABS: POLYCHROMASIA SLIGHT
[2020-11-04 18:39] LABS: BILIRUBIN 1+ (Negative); BLOOD 3+ (Negative); CLARITY Turbid (Clear); COLOR Dark Yellow (Yellow); GLUCOSE Negative (Negative); KETONE Negative (Negative); LEUKO ESTERASE 3+ (Negative); NITRITE Negative (Negative); UROBILINOGEN 0.2 E.U./dl (0.0-1.0)
[2020-11-04 18:41] LABS: WBC TNTC wbc/hpf (0-5)
[2020-11-05] VITALS: BP 108/32
[2020-11-05 06:56] LABS: BASO % 0.3 % (0.0-1.0); EOS # 0.1 10*3/uL (0.0-0.4); EOS % 0.8 % (1.0-4.0); HEMATOCRIT 31.1 % (37.0-47.0); LYMPH # 0.4 10*3/uL (1.3-4.4); LYMPH % 2.8 % (27.0-41.0); MEAN CELL VOLUME 95.1 fl (81.0-99.0); MEAN CORPUSCULAR HGB 28.1 pg (27.0-31.0); MEAN CORPUSCULAR HGB CONC 29.6 g/dl (33.0-37.0); MEAN PLATELET VOLUME 9.1 fl (9.6-12.3); MONO # 0.9 10*3/uL (0.1-1.0); MONO % 5.5 % (3.0-9.0); NEUT % 89.8 % (47.0-73.0); PLATELET COUNT AUTOMATED 276 10*3/uL (130-400); RED BLOOD COUNT 3.27 10*6/uL (4.10-5.10); RED CELL DISTRI WIDTH 17.9 % (0-14.5); WHITE BLOOD COUNT 15.6 10*3/uL (4.8-10.8)
[2020-11-05 07:11] LABS: ALBUMIN 2.2 gm/dl (3.1-4.5); CREATININE 2.89 mg/dL (0.55-1.02); POTASSIUM 4.4 mmol/L (3.5-5.1); TOTAL PROTEIN 7.4 gm/dL (6.4-8.2)
[2020-11-05 08:00] VITALS: BP 110/50
[2020-11-05 12:00] VITALS: BP 96/54
[2020-11-05 16:00] VITALS: BP 110/93
[2020-11-05 20:00] VITALS: BP 125/32
[2020-11-06] VITALS (15 sets, daily range): BP systolic 77–135; BP diastolic 46–74
[2020-11-06 06:25] LABS: CREATININE 3.65 mg/dL (0.55-1.02); POTASSIUM 4.2 mmol/L (3.5-5.1)
[2020-11-06 06:26] LABS: BASO # 0.1 10*3/uL (0.0-0.1); BASO % 0.7 % (0.0-1.0); EOS # 0.4 10*3/uL (0.0-0.4); EOS % 4.1 % (1.0-4.0); HEMATOCRIT 29.7 % (37.0-47.0); LYMPH # 0.6 10*3/uL (1.3-4.4); LYMPH % 6.4 % (27.0-41.0); MEAN CELL VOLUME 97.1 fl (81.0-99.0); MEAN CORPUSCULAR HGB 28.1 pg (27.0-31.0); MEAN PLATELET VOLUME 9.5 fl (9.6-12.3); MONO # 0.5 10*3/uL (0.1-1.0); NEUT # 7.4 10*3/uL (2.3-7.9); PLATELET COUNT AUTOMATED 232 10*3/uL (130-400); RED BLOOD COUNT 3.06 10*6/uL (4.10-5.10); RED CELL DISTRI WIDTH 17.4 % (0-14.5)
[2020-11-07] VITALS: BP 106/36
[2020-11-07 06:06] LABS: CREATININE 2.85 mg/dL (0.55-1.02)
[2020-11-07 06:22] LABS: BASO # 0.1 10*3/uL (0.0-0.1); BASO % 0.9 % (0.0-1.0); EOS # 0.2 10*3/uL (0.0-0.4); EOS % 2.8 % (1.0-4.0); HEMATOCRIT 33.2 % (37.0-47.0); LYMPH # 0.9 10*3/uL (1.3-4.4); LYMPH % 10.5 % (27.0-41.0); MEAN CELL VOLUME 95.4 fl (81.0-99.0); MEAN CORPUSCULAR HGB 28.4 pg (27.0-31.0); MEAN CORPUSCULAR HGB CONC 29.8 g/dl (33.0-37.0); MEAN PLATELET VOLUME 9.6 fl (9.6-12.3); MONO # 0.7 10*3/uL (0.1-1.0); MONO % 8.5 % (3.0-9.0); NEUT # 6.3 10*3/uL (2.3-7.9); NEUT % 76.9 % (47.0-73.0); RED BLOOD COUNT 3.48 10*6/uL (4.10-5.10); RED CELL DISTRI WIDTH 17.2 % (0-14.5); WHITE BLOOD COUNT 8.2 10*3/uL (4.8-10.8)
[2020-11-07 06:23] LABS: PLATELET COUNT AUTOMATED 327 10*3/uL (130-400)
[2020-11-07 08:00] VITALS: BP 103/33
[2020-11-07 12:00] VITALS: BP 109/52
[2020-11-07 20:00] VITALS: BP 107/40; BP 97/37
[2020-11-08] VITALS: BP 116/46
[2020-11-08 06:16] LABS: BASO # 0.1 10*3/uL (0.0-0.1); BASO % 1.4 % (0.0-1.0); EOS # 0.5 10*3/uL (0.0-0.4); EOS % 6.8 % (1.0-4.0); LYMPH # 0.9 10*3/uL (1.3-4.4); MEAN CELL VOLUME 96.2 fl (81.0-99.0); MEAN CORPUSCULAR HGB 27.4 pg (27.0-31.0); MEAN CORPUSCULAR HGB CONC 28.5 g/dl (33.0-37.0); MEAN PLATELET VOLUME 9.3 fl (9.6-12.3); MONO # 0.8 10*3/uL (0.1-1.0); MONO % 10.6 % (3.0-9.0); NEUT # 4.9 10*3/uL (2.3-7.9); NEUT % 68.6 % (47.0-73.0); PLATELET COUNT AUTOMATED 331 10*3/uL (130-400); RED BLOOD COUNT 3.43 10*6/uL (4.10-5.10); RED CELL DISTRI WIDTH 16.9 % (0-14.5); WHITE BLOOD COUNT 7.2 10*3/uL (4.8-10.8)
[2020-11-08 06:19] LABS: CREATININE 4.27 mg/dL (0.55-1.02); POTASSIUM 3.9 mmol/L (3.5-5.1)
[2020-11-08 08:00] VITALS: BP 119/43
[2020-11-08 12:00] VITALS: BP 97/50
[2020-11-08] MEDS ORDERED: CEPHALEXIN500 M1 PO (15:04)
[2020-11-08] MEDS ORDERED: LOPRESSOR25 MG PO (15:04)
[2020-11-08] MEDS ORDERED: PACERONE200 MG PO (15:04)
[2020-11-08] MEDS ORDERED: AMIODARONE HYD200 MG PO (15:10)
== END 2020-11-08 16:18 | disposition home or self-care (01) | DRG 871 ==
LOC: ED 16:12 → EDHOLD 18:57 → 5E 18:57
PROVIDERS: Emergency Medicine; Internal Medicine; Physician Assistant; ADMIT Internal Medicine; ATTEND Internal Medicine
DX: A41.9 Sepsis, unspecified organism (principal); E43 Unspecified severe protein-calorie malnutrition; N18.6 End stage renal disease; E87.2 Acidosis; N39.0 Urinary tract infection, site not specified; E87.1 Hypo-osmolality and hyponatremia; D68.51 Activated protein C resistance; I65.29 Occlusion and stenosis of unspecified carotid artery; R65.20 Severe sepsis without septic shock; E11.22 Type 2 diabetes mellitus with diabetic chronic kidney disease; I95.9 Hypotension, unspecified; R31.9 Hematuria, unspecified; D64.9 Anemia, unspecified; M32.9 Systemic lupus erythematosus, unspecified; I48.0 Paroxysmal atrial fibrillation; I73.9 Peripheral vascular disease, unspecified; Z90.49 Acquired absence of other specified parts of digestive tract; Z95.5 Presence of coronary angioplasty implant and graft; Z87.891 Personal history of nicotine dependence; Z80.1 Family history of malignant neoplasm of trachea, bronchus and lung; Z79.82 Long term (current) use of aspirin; Z79.899 Other long term (current) drug therapy; I25.2 Old myocardial infarction; Z68.23 Body mass index [BMI] 23.0-23.9, adult